=== PATIENT | female | born 1985 | race African-American/Black ===

== ENCOUNTER 2017-01-16 19:53 | Inpatient (IN) ==
[2017-01-16 21:47] LABS: Basophils % 0.3 % (0.0-0.8); Eosinophils % 0.4 % (0.00-10.9); Hematocrit 38.7 VOL% (35.7-47.0); Hemoglobin 12.7 GM/DL (12.0-16.0); Immature Granulocytes % 0.3 %; Immature Granulocytes Absolute 0.03 #; Lymphocytes # 1.8 10*3/uL (1.4-4.0); Lymphocytes % 18.9 % (21.3-54.2); Mean Corpuscular HGB Conc 32.8 GM/DL (32-36); Mean Corpuscular Hemoglobin 29 PG (27-34); Mean Corpuscular Volume 88.2 FL (87-102); Mean Platelet Volume 9.7 FL (9.6-12.0); Monocytes # 0.7 10*3/uL (0.11-0.8); Monocytes % 7.9 % (1.7-12.7); Neutrophils # 6.7 10*3/uL (1.4-7.4); Neutrophils % 72.2 % (38.7-73.9); Platelet Count 303 T/CUMM (130-400); Red Blood Count 4.39 MC/CUMM (3.8-5.5); Red Cell Distribution Width 13.4 % (9.3-17.3); White Blood Count 9.3 T/CUMM (4-12)
[2017-01-16 22:02] LABS: Albumin 3.5 G/DL (3.4-5.0); Bilirubin,Total 0.5 MG/DL (0.2-1.0); Calcium 9.6 MG/DL (8.5-10.1); Osmolality,Calculated 279.4 MOS/KG (273-304); Total Protein 8.7 G/DL (6.4-8.3)
[2017-01-16] MEDS ORDERED: LABETALOL 100 MG/20 ML VIAL IV STA (22:21)
[2017-01-16] MEDS ORDERED: LABETALOL 20 MG/4 ML SYRINGE IV ONE (22:26)
[2017-01-16 23:01] LABS: Apearance,Urine Slightly Hazy (Clear); Bacteria,Urine Occasional /HPF (Few); Bilirubin,Urine Negative (Negative); Blood, Urine Negative (Negative); Glucose,Urine (UA) Negative (Negative); Ketones,Urine Negative (Negative); Nitrite,Urine Negative (Negative); Protein,Urine Negative; RBC,Urine 1 /HPF (0-4); Squamous Epithelial Cell,Urine Occasional /HPF (0-10); Urine Color Yellow (Yellow); Urine Specific Gravity 1.015 (1.001-1.035); Urine Urobilinogen < 2.0 EU/DL (0.2-1.0); WBC,Urine 6 /HPF (0-6)
[2017-01-17] MEDS ORDERED: LABETALOL 20 MG/4 ML SYRINGE IV STA (00:23)
[2017-01-17] MEDS ORDERED: LABETALOL 20 MG/4 ML SYRINGE IV ONE (00:25)
[2017-01-17] MEDS ORDERED: niCARdipine 25 MG/10 ML VIAL IV ONE ×2 (01:43→03:11)
[2017-01-17] MEDS: niCARdipine INJ 25 MG in SODIUM CHLORIDE 0.9% 240 ML IV SCH ×2 (01:56→04:44)
[2017-01-17] MEDS ORDERED: ONDANSETRON 4 MG/2 ML VIAL IV PRN (03:15)
[2017-01-17] MEDS: niCARdipine INJ 50 MG in SODIUM CHLORIDE 0.9% 480 ML IV SCH ×4 (04:24→16:12)
[2017-01-17 06:29] LABS: Risk Ratio 2.66; Thyroid Stimulating Hormone 3.35 uIU/ml (0.358-3.74)
[2017-01-17] MEDS ORDERED: ENOXAPARIN 40 MG/0.4 ML SYRINGE SUBCUT SCH (09:00)
[2017-01-17] MEDS ORDERED: amLODIPine 5 MG TABLET PO SCH (09:00)
[2017-01-17] MEDS: CALCIUM (CARBONATE)/VITAMIN D 600 MG-400 UNIT TABLET PO SCH (09:41)
[2017-01-17] MEDS: DOCUSATE SODIUM 100 MG CAPSULE PO SCH ×3 (09:41→21:39)
[2017-01-17] MEDS: predniSONE 5 MG TABLET PO SCH (09:41)
[2017-01-17] MEDS: PANTOPRAZOLE 40 MG TABLET PO SCH (09:41)
[2017-01-17] MEDS: azaTHIOprine 50 MG TABLET PO SCH (09:41)
[2017-01-17] MEDS: LISINOPRIL 10 MG TABLET PO SCH (13:32)
[2017-01-17] MEDS: MORPHINE 2 MG/1 ML SYRINGE IV PRN (19:06)
[2017-01-18] MEDS: niCARdipine INJ 50 MG in SODIUM CHLORIDE 0.9% 480 ML IV SCH ×2 (01:33→06:33)
[2017-01-18] MEDS: amLODIPine 5 MG TABLET PO SCH (09:27)
[2017-01-18] MEDS: CALCIUM (CARBONATE)/VITAMIN D 600 MG-400 UNIT TABLET PO SCH (09:27)
[2017-01-18] MEDS: LISINOPRIL 10 MG TABLET PO SCH ×2 (09:27→20:14)
[2017-01-18] MEDS: azaTHIOprine 50 MG TABLET PO SCH (09:27)
[2017-01-18] MEDS: predniSONE 5 MG TABLET PO SCH (09:28)
[2017-01-18] MEDS: DOCUSATE SODIUM 100 MG CAPSULE PO SCH ×2 (09:28→20:14)
[2017-01-18] MEDS: PANTOPRAZOLE 40 MG TABLET PO SCH (09:28)
[2017-01-18] MEDS: NIFEdipine 10 MG CAPSULE PO PRN (19:10)
[2017-01-19] MEDS: niCARdipine INJ 50 MG in SODIUM CHLORIDE 0.9% 480 ML IV SCH (05:58)
[2017-01-19] MEDS ORDERED: ceFAZolin 2,000 MG in PREMIX 1 EACH IV ONE (08:52)
[2017-01-19] MEDS: CALCIUM (CARBONATE)/VITAMIN D 600 MG-400 UNIT TABLET PO SCH (09:16)
[2017-01-19] MEDS: LISINOPRIL 10 MG TABLET PO SCH ×2 (09:17)
[2017-01-19] MEDS: PANTOPRAZOLE 40 MG TABLET PO SCH (09:17)
[2017-01-19] MEDS: predniSONE 5 MG TABLET PO SCH (09:17)
[2017-01-19] MEDS: LABETALOL 20 MG/4 ML SYRINGE IV PRN ×2 (09:17→20:44)
[2017-01-19] MEDS: amLODIPine 5 MG TABLET PO SCH (09:17)
[2017-01-19] MEDS: DOCUSATE SODIUM 100 MG CAPSULE PO SCH ×2 (09:17→20:43)
[2017-01-19] MEDS: azaTHIOprine 50 MG TABLET PO SCH (09:17)
[2017-01-19] MEDS: LACTATED RINGERS 1,000 ML IV SCH (10:11)
[2017-01-19] MEDS ORDERED: BUPIVACAINE 0.5% 50 ML VIAL ONE (10:17)
[2017-01-19] MEDS ORDERED: LABETALOL 100 MG/20 ML VIAL IV ONE (10:50)
[2017-01-19] MEDS ORDERED: LIDOCAINE 2% 5 ML VIAL ONE (10:50)
[2017-01-19] MEDS ORDERED: ceFAZolin 1,000 MG VIAL ONE (11:09)
[2017-01-19] MEDS ORDERED: BACITRACIN OINT 0.9 GM PACK TOP ONE (11:23)
[2017-01-19] MEDS ORDERED: fentaNYL 100 MCG/2 ML VIAL ONE (11:29)
[2017-01-19] MEDS ORDERED: MIDAZOLAM 2 MG/2 ML VIAL ONE (11:29)
[2017-01-19] MEDS: ceFAZolin 2,000 MG in PREMIX 1 EACH IV SCH (18:26)
[2017-01-19] MEDS: LISINOPRIL 20 MG TABLET PO SCH (20:43)
[2017-01-20] MEDS: ceFAZolin 2,000 MG in PREMIX 1 EACH IV SCH (01:01)
[2017-01-20] MEDS: niCARdipine INJ 50 MG in SODIUM CHLORIDE 0.9% 480 ML IV SCH (05:09)
[2017-01-20 06:09] LABS: Calcium 8.5 MG/DL (8.5-10.1); Osmolality,Calculated 275.5 MOS/KG (273-304); Potassium 3.9 MMOL/L (3.5-5.1)
[2017-01-20 06:10] LABS: Basophils % 0.2 % (0.0-0.8); Eosinophils % 0.6 % (0.00-10.9); Hematocrit 33.3 VOL% (35.7-47.0); Immature Granulocytes % 0.3 %; Immature Granulocytes Absolute 0.02 #; Lymphocytes # 1.3 10*3/uL (1.4-4.0); Lymphocytes % 20.3 % (21.3-54.2); Mean Corpuscular Hemoglobin 29 PG (27-34); Mean Corpuscular Volume 88.1 FL (87-102); Mean Platelet Volume 9.7 FL (9.6-12.0); Monocytes # 0.6 10*3/uL (0.11-0.8); Monocytes % 9.1 % (1.7-12.7); Neutrophils # 4.4 10*3/uL (1.4-7.4); Neutrophils % 69.5 % (38.7-73.9); Platelet Count 264 T/CUMM (130-400); Red Blood Count 3.78 MC/CUMM (3.8-5.5); Red Cell Distribution Width 13.6 % (9.3-17.3); White Blood Count 6.4 T/CUMM (4-12)
[2017-01-20] MEDS: amLODIPine 5 MG TABLET PO SCH (08:49)
[2017-01-20] MEDS: azaTHIOprine 50 MG TABLET PO SCH (08:49)
[2017-01-20] MEDS: DOCUSATE SODIUM 100 MG CAPSULE PO SCH ×2 (08:49→21:59)
[2017-01-20] MEDS: LISINOPRIL 20 MG TABLET PO SCH ×2 (08:49→21:59)
[2017-01-20] MEDS: PANTOPRAZOLE 40 MG TABLET PO SCH (08:49)
[2017-01-20] MEDS: CALCIUM (CARBONATE)/VITAMIN D 600 MG-400 UNIT TABLET PO SCH (08:49)
[2017-01-20] MEDS: predniSONE 5 MG TABLET PO SCH (08:49)
[2017-01-20] MEDS: LACTATED RINGERS 1,000 ML IV SCH (10:07)
[2017-01-20] MEDS: LABETALOL 20 MG/4 ML SYRINGE IV PRN (11:41)
[2017-01-21] MEDS: LISINOPRIL 20 MG TABLET PO SCH ×2 (08:34→22:05)
[2017-01-21] MEDS: predniSONE 5 MG TABLET PO SCH (08:34)
[2017-01-21] MEDS: CALCIUM (CARBONATE)/VITAMIN D 600 MG-400 UNIT TABLET PO SCH (08:34)
[2017-01-21] MEDS: PANTOPRAZOLE 40 MG TABLET PO SCH (08:34)
[2017-01-21] MEDS: azaTHIOprine 50 MG TABLET PO SCH (08:34)
[2017-01-21] MEDS: DOCUSATE SODIUM 100 MG CAPSULE PO SCH ×3 (08:34→22:06)
[2017-01-21] MEDS: LACTATED RINGERS 1,000 ML IV SCH (10:40)
[2017-01-21] MEDS: MORPHINE 2 MG/1 ML SYRINGE IV PRN ×2 (11:41→23:16)
[2017-01-21] MEDS: niCARdipine INJ 50 MG in SODIUM CHLORIDE 0.9% 480 ML IV SCH (22:28)
[2017-01-22] MEDS: LABETALOL 20 MG/4 ML SYRINGE IV PRN (02:42)
[2017-01-22] MEDS: DOCUSATE SODIUM 100 MG CAPSULE PO SCH ×3 (09:14→21:05)
[2017-01-22] MEDS: CALCIUM (CARBONATE)/VITAMIN D 600 MG-400 UNIT TABLET PO SCH (09:14)
[2017-01-22] MEDS: azaTHIOprine 50 MG TABLET PO SCH (09:15)
[2017-01-22] MEDS: predniSONE 5 MG TABLET PO SCH (09:15)
[2017-01-22] MEDS: CARVEDILOL 12.5 MG TABLET PO SCH ×2 (09:15→21:05)
[2017-01-22] MEDS: PANTOPRAZOLE 40 MG TABLET PO SCH (09:15)
[2017-01-22] MEDS: LISINOPRIL 20 MG TABLET PO SCH (09:15)
[2017-01-23] MEDS: NIFEdipine 10 MG CAPSULE PO PRN (00:09)
[2017-01-23] MEDS: CALCIUM (CARBONATE)/VITAMIN D 600 MG-400 UNIT TABLET PO SCH (08:53)
[2017-01-23] MEDS: predniSONE 5 MG TABLET PO SCH (08:53)
[2017-01-23] MEDS: DOCUSATE SODIUM 100 MG CAPSULE PO SCH ×2 (08:53→08:57)
[2017-01-23] MEDS: LISINOPRIL 20 MG TABLET PO SCH (08:53)
[2017-01-23] MEDS: azaTHIOprine 50 MG TABLET PO SCH (08:54)
[2017-01-23] MEDS: PANTOPRAZOLE 40 MG TABLET PO SCH (08:54)
[2017-01-23] MEDS: CARVEDILOL 12.5 MG TABLET PO SCH (08:54)
[2017-01-23] MEDS ORDERED: LEVOFLOXACIN 500 MG TABLET PO SCH (09:00)
[2017-01-23 16:11] VITALS: BP 131/84
== END 2017-01-23 15:15 | disposition home or self-care (01) | DRG 256 ==
LOC: N.ED 19:53 → SUATTDRO 01-17 02:21 → N.CC 01-17 02:21 → N.5E 01-18 21:54
PROVIDERS: ADMIT Internal Medicine; ATTEND Hospitalist

== ENCOUNTER 2020-07-31 17:21 | Observation (INO) ==
[2020-07-31] MEDS ORDERED: hydrALAZINE 20 MG/1 ML VIAL IV STA ×2 (18:16→20:22)
[2020-07-31 18:28] LABS: Basophils % 0.7 % (0.0-0.8); Eosinophils % 0.4 % (0.00-10.9); Hemoglobin 11.7 GM/DL (12.0-16.0); Immature Granulocytes % 0.2 %; Immature Granulocytes Absolute 0.01 #; Lymphocytes # 1.2 10*3/uL (1.4-4.0); Lymphocytes % 21.5 % (21.3-54.2); Mean Corpuscular HGB Conc 30.8 GM/DL (32-36); Mean Corpuscular Volume 89.4 FL (87-102); Mean Platelet Volume 9.5 FL (9.6-12.0); Monocytes % 10.9 % (1.7-12.7); Neutrophils % 66.3 % (38.7-73.9); Platelet Count 303 T/CUMM (130-400); Red Blood Count 4.25 MC/CUMM (3.8-5.5); Red Cell Distribution Width 14.4 % (9.3-17.3); White Blood Count 5.4 T/CUMM (4-12)
[2020-07-31 18:37] LABS: PT Patient Result 11.4 SECS (10.5-12.0); Partial Thromboplastin Time 26.3 SECS (23.9-33.8)
[2020-07-31 18:40] LABS: Alanine Aminotransferase 23 U/L (13-56); Albumin 3.2 G/DL (3.4-5.0); Alkaline Phosphatase 72 U/L (45-117); Aspartate Amino Transferase 21 U/L (0-37); Blood Urea Nitrogen 15 MG/DL (7-18); Calcium 9.2 MG/DL (8.5-10.1); Carbon Dioxide 27 MMOL/L (21-32); Estimated Glom Filtration Rate 94 ML/MIN; Glucose 80 MG/DL (74-106); Osmolality,Calculated 272.8 MOS/KG (273-304); Potassium 3.8 MMOL/L (3.5-5.1); Sodium 137 MMOL/L (136-145); Total Protein 7.8 G/DL (6.4-8.2); Troponin I 0.102 NG/ML (0.00-0.045)
[2020-07-31] MEDS ORDERED: LABETALOL 100 MG/20 ML VIAL IV STA (19:24)
[2020-07-31] MEDS ORDERED: LABETALOL 20 MG/4 ML SYRINGE IV ONE (19:28)
[2020-07-31] MEDS ORDERED: cloNIDine 0.1 MG TABLET PO STA (20:39)
[2020-07-31] MEDS ORDERED: ACETAMINOPHEN 500 MG TABLET PO STA (21:27)
[2020-07-31] MEDS ORDERED: ONDANSETRON 4 MG/2 ML VIAL IV PRN (21:57)
[2020-07-31] MEDS ORDERED: ACETAMINOPHEN 325 MG TABLET PO PRN (21:57)
[2020-07-31] MEDS: DOCUSATE SODIUM 100 MG CAPSULE PO SCH (22:50)
[2020-08-01] MEDS: hydrALAZINE 20 MG/1 ML VIAL IV PRN ×2 (04:55→21:04)
[2020-08-01] MEDS: carvediloL 25 MG TABLET PO SCH ×2 (09:37→21:04)
[2020-08-01] MEDS: cloNIDine 0.1 MG TABLET PO SCH ×2 (09:37→20:59)
[2020-08-01] MEDS: PANTOPRAZOLE 40 MG TABLET PO SCH (09:37)
[2020-08-01] MEDS: DOCUSATE SODIUM 100 MG CAPSULE PO SCH ×2 (09:37→21:04)
[2020-08-01] MEDS: amLODIPine 5 MG TABLET PO SCH (13:05)
[2020-08-01] MEDS ORDERED: amLODIPine 10 MG TABLET ONE (13:13)
[2020-08-02 06:39] LABS: Calcium 8.6 MG/DL (8.5-10.1); Osmolality,Calculated 275.5 MOS/KG (273-304); Potassium 3.6 MMOL/L (3.5-5.1)
[2020-08-02 06:40] LABS: Basophils % 0.6 % (0.0-0.8); Eosinophils # 0.1 10*3/uL (0.0-0.87); Eosinophils % 4.2 % (0.00-10.9); Hematocrit 33.7 VOL% (35.7-47.0); Hemoglobin 10.6 GM/DL (12.0-16.0); Immature Granulocytes % 0.3 %; Immature Granulocytes Absolute 0.01 #; Lymphocytes # 0.8 10*3/uL (1.4-4.0); Lymphocytes % 22.9 % (21.3-54.2); Mean Corpuscular HGB Conc 31.5 GM/DL (32-36); Mean Corpuscular Volume 88.5 FL (87-102); Mean Platelet Volume 9.6 FL (9.6-12.0); Monocytes % 18.5 % (1.7-12.7); Neutrophils % 53.5 % (38.7-73.9); Platelet Count 216 T/CUMM (130-400); Red Blood Count 3.81 MC/CUMM (3.8-5.5); Red Cell Distribution Width 14.8 % (9.3-17.3); White Blood Count 3.4 T/CUMM (4-12)
[2020-08-02 08:10] LABS: Band Neutrophils 1 % (0-10); Eosinophils 5 % (0-10); Hypochromasia 1+; Lymphocytes 19 % (20-55); Microcytosis 1+; Segmented Neutrophils 63 % (50-85); Total Cells Counted 100
[2020-08-02 08:11] LABS: Platelet Estimate Normal
[2020-08-02] MEDS: amLODIPine 5 MG TABLET PO SCH (09:04)
[2020-08-02] MEDS: PANTOPRAZOLE 40 MG TABLET PO SCH (09:04)
[2020-08-02] MEDS: carvediloL 25 MG TABLET PO SCH (09:04)
[2020-08-02] MEDS: DOCUSATE SODIUM 100 MG CAPSULE PO SCH (09:04)
[2020-08-02] MEDS: cloNIDine 0.1 MG TABLET PO SCH (09:04)
[2020-08-02 11:37] VITALS: BP 144/102
== END 2020-08-02 15:32 | disposition home or self-care (01) ==
LOC: N.ED 17:21 → INTOOBSV 20:37 → N.EDINP 20:37 → N.TELEN 08-01 12:57
PROVIDERS: ADMIT Family Medicine; ATTEND Family Medicine

== ENCOUNTER 2020-08-27 06:07 | Inpatient (IN) ==
[~2020-08-27 06:07] MED LIST: ASPIRIN 325 MG TABLET PO ONE; DIAZEPAM 5 MG TABLET PO ONE; MAGNESIUM SULF RIDER 2 GM/50 ML PREMIX IV PRN; POTASSIUM CHLORIDE RIDER 10 MEQ/100 ML PREMIX IV PRN; diphenhydrAMINE CAP 25 MG CAPSULE PO ONE
[2020-08-27] MEDS ORDERED: DIAZEPAM 5 MG TABLET ONE (06:47)
[2020-08-27] MEDS ORDERED: ASPIRIN 325 MG TABLET ONE (06:48)
[2020-08-27] MEDS ORDERED: diphenhydrAMINE CAP 25 MG CAPSULE ONE (06:48)
[2020-08-27] MEDS: SODIUM CHLORIDE 0.9% 1,000 ML IV SCH ×2 (06:54→21:40)
[2020-08-27 06:57] LABS: Basophils % 0.2 % (0.0-0.8); Eosinophils % 0.8 % (0.00-10.9); Hemoglobin 10.6 GM/DL (12.0-16.0); Immature Granulocytes % 0.2 %; Immature Granulocytes Absolute 0.01 #; Lymphocytes # 1.3 10*3/uL (1.4-4.0); Lymphocytes % 24.7 % (21.3-54.2); Mean Corpuscular HGB Conc 31.2 GM/DL (32-36); Mean Corpuscular Volume 89.2 FL (87-102); Mean Platelet Volume 9.7 FL (9.6-12.0); Monocytes % 11.1 % (1.7-12.7); Platelet Count 243 T/CUMM (130-400); Red Blood Count 3.81 MC/CUMM (3.8-5.5); Red Cell Distribution Width 14.5 % (9.3-17.3); White Blood Count 5.2 T/CUMM (4-12)
[2020-08-27] MEDS ORDERED: HEPARIN/NACL 0.9% 2 UNITS/ML 2,000 UNIT/1,000 ML BAG IV ONE (07:02)
[2020-08-27] MEDS ORDERED: LIDOCAINE 1% 20 ML VIAL ONE (07:02)
[2020-08-27 07:18] LABS: Hypochromasia Slight; Microcytosis Slight; Platelet Estimate Adequate
[2020-08-27] MEDS: NITROGLYCERIN DRIP 50 MG/250 ML BOTTLE IV PRN ×2 (07:19→21:09)
[2020-08-27 07:20] LABS: Alanine Aminotransferase 16 U/L (13-56); Alkaline Phosphatase 68 U/L (45-117); Aspartate Amino Transferase 15 U/L (0-37); Bilirubin,Total < 0.39 MG/DL (0.2-1.0); Blood Urea Nitrogen 21 MG/DL (7-18); Calcium 8.8 MG/DL (8.5-10.1); Carbon Dioxide 29 MMOL/L (21-32); Estimated Glom Filtration Rate 93 ML/MIN; Glucose 88 MG/DL (74-106); Osmolality,Calculated 278.5 MOS/KG (273-304); Potassium 3.8 MMOL/L (3.5-5.1); Sodium 139 MMOL/L (136-145); Total Protein 7.8 G/DL (6.4-8.2)
[2020-08-27] MEDS ORDERED: fentaNYL 100 MCG/2 ML VIAL ONE ×2 (07:39→10:12)
[2020-08-27] MEDS ORDERED: MIDAZOLAM 2 MG/2 ML VIAL ONE ×2 (07:39→10:12)
[2020-08-27] MEDS ORDERED: HEPARIN/NACL 0.9% 2 UNITS/ML 1,000 UNIT/500 ML BAG IV ONE (10:08)
[2020-08-27] MEDS ORDERED: NITROGLYCERIN DRIP 50 MG/250 ML BOTTLE IV ONE (10:11)
[2020-08-27] MEDS ORDERED: HEPARIN 5,000 UNIT/1 ML VIAL ONE (10:11)
[2020-08-27] MEDS ORDERED: VERAPAMIL 5 MG/2 ML VIAL ONE (10:12)
[2020-08-27] MEDS: hydrALAZINE 25 MG TABLET PO SCH ×2 (15:10→20:45)
[2020-08-27] MEDS: carvediloL 25 MG TABLET PO SCH (20:45)
[2020-08-28 03:50] LABS: Basophils % 0.4 % (0.0-0.8); Eosinophils # 0.1 10*3/uL (0.0-0.87); Eosinophils % 1.1 % (0.00-10.9); Hematocrit 31.2 VOL% (35.7-47.0); Hemoglobin 9.8 GM/DL (12.0-16.0); Lymphocytes % 18.5 % (21.3-54.2); Mean Corpuscular HGB Conc 31.4 GM/DL (32-36); Mean Corpuscular Volume 88.6 FL (87-102); Mean Platelet Volume 9.5 FL (9.6-12.0); Platelet Count 226 T/CUMM (130-400); Red Blood Count 3.52 MC/CUMM (3.8-5.5); Red Cell Distribution Width 14.4 % (9.3-17.3); White Blood Count 5.6 T/CUMM (4-12)
[2020-08-28 04:03] LABS: Calcium 8.2 MG/DL (8.5-10.1); Osmolality,Calculated 273.7 MOS/KG (273-304); Potassium 3.7 MMOL/L (3.5-5.1)
[2020-08-28] MEDS: NITROGLYCERIN DRIP 50 MG/250 ML BOTTLE IV PRN ×2 (04:57→13:00)
[2020-08-28] MEDS: SODIUM CHLORIDE 0.9% 1,000 ML IV SCH ×2 (07:32→09:01)
[2020-08-28] MEDS: hydroCHLOROthiazide 12.5 MG CAPSULE PO SCH (08:56)
[2020-08-28] MEDS: hydrALAZINE 25 MG TABLET PO SCH (08:56)
[2020-08-28] MEDS: carvediloL 25 MG TABLET PO SCH ×2 (08:56→20:29)
[2020-08-28] MEDS ORDERED: LOSARTAN 25 MG TABLET PO SCH (10:00)
[2020-08-28] MEDS ORDERED: ALUMINUM/MAGNES/SIMETH MAX STR 30 ML UDCUP PO PRN (10:38)
[2020-08-28] MEDS ORDERED: CALCIUM CARBONATE CHEW 500 MG TABLET PO PRN (10:38)
[2020-08-28] MEDS ORDERED: LACTULOSE 20 GM/30 ML UDCUP PO PRN (10:38)
[2020-08-28] MEDS ORDERED: ZALEPLON 5 MG CAPSULE PO PRN (10:38)
[2020-08-28] MEDS ORDERED: BISACODYL 5 MG TABLET PO PRN (10:38)
[2020-08-28] MEDS ORDERED: ONDANSETRON 4 MG/2 ML VIAL IV PRN (10:38)
[2020-08-28] MEDS ORDERED: SIMETHICONE CHEW 125 MG TABLET PO PRN (10:38)
[2020-08-28] MEDS ORDERED: MAGNESIUM SULF RIDER 4 GM/100 ML PREMIX IV PRN (10:38)
[2020-08-28] MEDS ORDERED: MAGNESIUM SULF RIDER 2 GM/50 ML PREMIX IV PRN (10:38)
[2020-08-28] MEDS ORDERED: diphenhydrAMINE CAP 25 MG CAPSULE PO PRN (10:38)
[2020-08-28] MEDS: ENOXAPARIN 40 MG/0.4 ML SYRINGE SUBCUT SCH (11:05)
[2020-08-28] MEDS: ACETAMINOPHEN 325 MG TABLET PO PRN ×2 (11:06→21:45)
[2020-08-28] MEDS: amLODIPine 5 MG TABLET PO SCH (12:02)
[2020-08-28] MEDS: hydrALAZINE 20 MG/1 ML VIAL IV PRN ×2 (12:03→21:35)
[2020-08-28] MEDS: LOSARTAN 25 MG TABLET PO SCH (20:29)
[2020-08-29 08:28] LABS: Basophils % 0.4 % (0.0-0.8); Eosinophils # 0.1 10*3/uL (0.0-0.87); Eosinophils % 1.5 % (0.00-10.9); Hematocrit 34.6 VOL% (35.7-47.0); Hemoglobin 11.1 GM/DL (12.0-16.0); Immature Granulocytes % 0.2 %; Immature Granulocytes Absolute 0.01 #; Lymphocytes # 1.1 10*3/uL (1.4-4.0); Lymphocytes % 19.7 % (21.3-54.2); Mean Corpuscular HGB Conc 32.1 GM/DL (32-36); Mean Corpuscular Volume 88.3 FL (87-102); Mean Platelet Volume 9.7 FL (9.6-12.0); Monocytes % 9.3 % (1.7-12.7); Neutrophils % 68.9 % (38.7-73.9); Platelet Count 257 T/CUMM (130-400); Red Blood Count 3.92 MC/CUMM (3.8-5.5); Red Cell Distribution Width 14.5 % (9.3-17.3); White Blood Count 5.4 T/CUMM (4-12)
[2020-08-29] MEDS: LOSARTAN 25 MG TABLET PO SCH (08:41)
[2020-08-29] MEDS: hydroCHLOROthiazide 12.5 MG CAPSULE PO SCH (08:41)
[2020-08-29] MEDS: PANTOPRAZOLE 40 MG TABLET PO SCH (08:41)
[2020-08-29] MEDS: carvediloL 25 MG TABLET PO SCH ×2 (08:41→21:37)
[2020-08-29] MEDS: amLODIPine 5 MG TABLET PO SCH (08:41)
[2020-08-29 08:43] LABS: Calcium 8.7 MG/DL (8.5-10.1); Osmolality,Calculated 267.1 MOS/KG (273-304); Potassium 3.2 MMOL/L (3.5-5.1)
[2020-08-29] MEDS: ENOXAPARIN 40 MG/0.4 ML SYRINGE SUBCUT SCH (10:45)
[2020-08-29] MEDS: hydrALAZINE 20 MG/1 ML VIAL IV PRN (11:32)
[2020-08-29] MEDS ORDERED: LOSARTAN 25 MG TABLET PO ONE (12:20)
[2020-08-29] MEDS: POTASSIUM CHLORIDE 20 MEQ TABLET PO PRN ×4 (12:20→17:30)
[2020-08-29] MEDS: LOSARTAN 50 MG TABLET PO SCH (21:37)
[2020-08-30] MEDS: hydrALAZINE 20 MG/1 ML VIAL IV PRN (04:55)
[2020-08-30 05:12] LABS: Basophils % 0.2 % (0.0-0.8); Eosinophils # 0.1 10*3/uL (0.0-0.87); Eosinophils % 1.1 % (0.00-10.9); Hematocrit 33.6 VOL% (35.7-47.0); Hemoglobin 10.5 GM/DL (12.0-16.0); Immature Granulocytes % 0.5 %; Immature Granulocytes Absolute 0.03 #; Lymphocytes % 16.4 % (21.3-54.2); Mean Corpuscular HGB Conc 31.3 GM/DL (32-36); Mean Corpuscular Volume 88.7 FL (87-102); Mean Platelet Volume 9.8 FL (9.6-12.0); Monocytes % 11.2 % (1.7-12.7); Neutrophils % 70.6 % (38.7-73.9); Platelet Count 263 T/CUMM (130-400); Red Blood Count 3.79 MC/CUMM (3.8-5.5); Red Cell Distribution Width 14.4 % (9.3-17.3); White Blood Count 6.3 T/CUMM (4-12)
[2020-08-30 05:53] LABS: Calcium 8.6 MG/DL (8.5-10.1); Potassium 4.2 MMOL/L (3.5-5.1)
[2020-08-30] MEDS: LOSARTAN 50 MG TABLET PO SCH ×2 (08:57→20:38)
[2020-08-30] MEDS: hydroCHLOROthiazide 12.5 MG CAPSULE PO SCH (08:57)
[2020-08-30] MEDS: amLODIPine 5 MG TABLET PO SCH (08:57)
[2020-08-30] MEDS: minoxidiL 2.5 MG TABLET PO SCH ×2 (08:57→20:38)
[2020-08-30] MEDS: carvediloL 25 MG TABLET PO SCH ×2 (08:57→20:38)
[2020-08-30] MEDS: PANTOPRAZOLE 40 MG TABLET PO SCH (08:57)
[2020-08-30] MEDS: ENOXAPARIN 40 MG/0.4 ML SYRINGE SUBCUT SCH (11:24)
[2020-08-31 04:47] LABS: Basophils % 0.3 % (0.0-0.8); Eosinophils # 0.1 10*3/uL (0.0-0.87); Eosinophils % 1.4 % (0.00-10.9); Hematocrit 33.1 VOL% (35.7-47.0); Hemoglobin 10.4 GM/DL (12.0-16.0); Immature Granulocytes % 0.2 %; Immature Granulocytes Absolute 0.01 #; Lymphocytes # 1.1 10*3/uL (1.4-4.0); Lymphocytes % 18.6 % (21.3-54.2); Mean Corpuscular HGB Conc 31.4 GM/DL (32-36); Mean Corpuscular Volume 87.6 FL (87-102); Mean Platelet Volume 9.6 FL (9.6-12.0); Monocytes % 12.6 % (1.7-12.7); Neutrophils % 66.9 % (38.7-73.9); Platelet Count 270 T/CUMM (130-400); Red Blood Count 3.78 MC/CUMM (3.8-5.5); Red Cell Distribution Width 14.5 % (9.3-17.3); White Blood Count 5.9 T/CUMM (4-12)
[2020-08-31 05:09] LABS: Calcium 8.7 MG/DL (8.5-10.1); Osmolality,Calculated 269.2 MOS/KG (273-304)
[2020-08-31] MEDS: PANTOPRAZOLE 40 MG TABLET PO SCH (08:12)
[2020-08-31] MEDS: carvediloL 25 MG TABLET PO SCH (08:12)
[2020-08-31] MEDS: LOSARTAN 50 MG TABLET PO SCH (08:12)
[2020-08-31] MEDS: minoxidiL 2.5 MG TABLET PO SCH (08:12)
[2020-08-31] MEDS: hydroCHLOROthiazide 12.5 MG CAPSULE PO SCH (08:12)
[2020-08-31] MEDS: ENOXAPARIN 40 MG/0.4 ML SYRINGE SUBCUT SCH (11:00)
[2020-08-31 12:19] VITALS: BP 136/85
== END 2020-08-31 15:05 | disposition home or self-care (01) | DRG 287 ==
LOC: N.CL 06:07 → N.CC 10:59 → N.TELEN 08-29 10:54
PROVIDERS: ADMIT Internal Medicine Cardiovascular Disease; ATTEND Internal Medicine Cardiovascular Disease
PROC: CLCCHCL (ICD-10-PCS; 2020-08-27 08:05)

== ENCOUNTER 2021-05-04 14:49 | Inpatient (IN) ==
[2021-05-04 15:34] LABS: Basophils % 0.4 % (0.0-0.8); Eosinophils % 0.4 % (0.00-10.9); Hematocrit 32.5 VOL% (35.7-47.0); Hemoglobin 9.8 GM/DL (12.0-16.0); Immature Granulocytes % 0.4 %; Immature Granulocytes Absolute 0.02 #; Lymphocytes # 0.7 10*3/uL (1.4-4.0); Lymphocytes % 12.8 % (21.3-54.2); Mean Corpuscular HGB Conc 30.2 GM/DL (32-36); Mean Corpuscular Volume 82.3 FL (87-102); Mean Platelet Volume 9.8 FL (9.6-12.0); Monocytes % 10.6 % (1.7-12.7); Neutrophils % 75.4 % (38.7-73.9); Platelet Count 308 T/CUMM (130-400); Red Blood Count 3.95 MC/CUMM (3.8-5.5); Red Cell Distribution Width 15.9 % (9.3-17.3); White Blood Count 5.4 T/CUMM (4-12)
[2021-05-04 15:45] LABS: INR 1.1; PT Patient Result 11.7 SECS (10.5-12.0); Partial Thromboplastin Time 23.8 SECS (23.8-32.1)
[2021-05-04 16:02] LABS: Albumin 2.8 G/DL (3.4-5.0); Bilirubin,Total 0.5 MG/DL (0.20-1.00); Calcium 8.5 MG/DL (8.5-10.1); Osmolality,Calculated 281.3 MOS/KG (273-304); Potassium 3.5 MMOL/L (3.5-5.1); Total Protein 7.3 G/DL (6.4-8.2)
[2021-05-04] MEDS ORDERED: FUROSEMIDE 40 MG/4 ML VIAL IV STA (16:37)
[2021-05-04] MEDS ORDERED: hydrALAZINE 20 MG/1 ML VIAL IV STA (16:38)
[2021-05-04] MEDS ORDERED: ACETAMINOPHEN 325 MG TABLET PO PRN (16:55)
[2021-05-04] MEDS ORDERED: ONDANSETRON 4 MG/2 ML VIAL IV PRN (16:55)
[2021-05-04] MEDS: cloNIDine 0.1 MG TABLET PO SCH (21:24)
[2021-05-04] MEDS: carvediloL 25 MG TABLET PO SCH (21:25)
[2021-05-05] MEDS: minoxidiL 2.5 MG TABLET PO SCH ×3 (00:31→21:36)
[2021-05-05 05:25] LABS: Basophils % 0.2 % (0.0-0.8); Eosinophils % 0.4 % (0.00-10.9); Hematocrit 31.5 VOL% (35.7-47.0); Hemoglobin 9.4 GM/DL (12.0-16.0); Immature Granulocytes % 0.4 %; Immature Granulocytes Absolute 0.02 #; Lymphocytes # 0.8 10*3/uL (1.4-4.0); Lymphocytes % 16.9 % (21.3-54.2); Mean Corpuscular HGB Conc 29.8 GM/DL (32-36); Mean Corpuscular Volume 81.6 FL (87-102); Mean Platelet Volume 9.6 FL (9.6-12.0); Monocytes % 11.8 % (1.7-12.7); Neutrophils % 70.3 % (38.7-73.9); Platelet Count 284 T/CUMM (130-400); Red Blood Count 3.86 MC/CUMM (3.8-5.5); White Blood Count 4.7 T/CUMM (4-12)
[2021-05-05 08:40] LABS: Albumin 2.4 G/DL (3.4-5.0); Bilirubin,Total 0.6 MG/DL (0.20-1.00); Calcium 8.8 MG/DL (8.5-10.1); Osmolality,Calculated 280.3 MOS/KG (273-304); Potassium 3.4 MMOL/L (3.5-5.1); Total Protein 6.5 G/DL (6.4-8.2)
[2021-05-05] MEDS: PANTOPRAZOLE 40 MG TABLET PO SCH (09:53)
[2021-05-05] MEDS: cloNIDine 0.1 MG TABLET PO SCH ×2 (09:53→21:36)
[2021-05-05] MEDS: carvediloL 25 MG TABLET PO SCH ×2 (09:53→21:35)
[2021-05-05] MEDS: ENOXAPARIN 100 MG/ML SYRINGE SUBCUT SCH (09:54)
[2021-05-05] MEDS: lisinopriL 20 MG TABLET PO SCH (09:54)
[2021-05-05] MEDS: hydroCHLOROthiazide 12.5 MG CAPSULE PO SCH (09:54)
[2021-05-05] MEDS: FUROSEMIDE 40 MG/4 ML VIAL IV SCH ×2 (10:15→17:33)
[2021-05-05] MEDS ORDERED: POTASSIUM CHLORIDE 20 MEQ TABLET PO ONE (10:21)
[2021-05-05] MEDS: ASPIRIN EC 81 MG TABLET PO SCH (11:19)
[2021-05-06] MEDS ORDERED: POTASSIUM CHLORIDE 20 MEQ TABLET PO ONE (07:23)
[2021-05-06 08:39] LABS: Basophils % 0.4 % (0.0-0.8); Eosinophils % 0.4 % (0.00-10.9); Hematocrit 31.8 VOL% (35.7-47.0); Hemoglobin 9.7 GM/DL (12.0-16.0); Immature Granulocytes % 0.4 %; Immature Granulocytes Absolute 0.02 #; Lymphocytes # 0.7 10*3/uL (1.4-4.0); Lymphocytes % 13.1 % (21.3-54.2); Mean Corpuscular HGB Conc 30.5 GM/DL (32-36); Mean Corpuscular Volume 81.5 FL (87-102); Mean Platelet Volume 9.7 FL (9.6-12.0); Neutrophils % 73.7 % (38.7-73.9); Platelet Count 266 T/CUMM (130-400); Red Cell Distribution Width 16.2 % (9.3-17.3); White Blood Count 5.7 T/CUMM (4-12)
[2021-05-06 09:12] LABS: Albumin 2.3 G/DL (3.4-5.0); Bilirubin,Total 0.5 MG/DL (0.20-1.00); Calcium 8.9 MG/DL (8.5-10.1); Osmolality,Calculated 276.5 MOS/KG (273-304); Potassium 3.5 MMOL/L (3.5-5.1); Total Protein 6.6 G/DL (6.4-8.2)
[2021-05-06] MEDS ORDERED: MAGNESIUM SULF RIDER 2 GM/50 ML PREMIX IV ONE (09:58)
[2021-05-06] MEDS: minoxidiL 2.5 MG TABLET PO SCH ×2 (10:03→21:17)
[2021-05-06] MEDS: hydroCHLOROthiazide 12.5 MG CAPSULE PO SCH (10:03)
[2021-05-06] MEDS: ASPIRIN EC 81 MG TABLET PO SCH (10:03)
[2021-05-06] MEDS: PANTOPRAZOLE 40 MG TABLET PO SCH (10:04)
[2021-05-06] MEDS: carvediloL 25 MG TABLET PO SCH ×2 (10:04→21:16)
[2021-05-06] MEDS: cloNIDine 0.1 MG TABLET PO SCH (10:04)
[2021-05-06] MEDS: lisinopriL 20 MG TABLET PO SCH (10:04)
[2021-05-06] MEDS: ENOXAPARIN 100 MG/ML SYRINGE SUBCUT SCH (10:05)
[2021-05-06] MEDS: FUROSEMIDE 40 MG/4 ML VIAL IV SCH ×2 (11:05→16:19)
[2021-05-07] MEDS: cloNIDine 0.1 MG TABLET PO SCH ×2 (00:42→09:27)
[2021-05-07 08:10] LABS: Basophils % 0.3 % (0.0-0.8); Eosinophils % 0.3 % (0.00-10.9); Hematocrit 31.1 VOL% (35.7-47.0); Hemoglobin 9.6 GM/DL (12.0-16.0); Immature Granulocytes % 0.3 %; Immature Granulocytes Absolute 0.02 #; Lymphocytes # 0.8 10*3/uL (1.4-4.0); Lymphocytes % 12.2 % (21.3-54.2); Mean Corpuscular HGB Conc 30.9 GM/DL (32-36); Mean Corpuscular Volume 81.2 FL (87-102); Mean Platelet Volume 9.7 FL (9.6-12.0); Monocytes % 13.8 % (1.7-12.7); Neutrophils % 73.1 % (38.7-73.9); Platelet Count 331 T/CUMM (130-400); Red Blood Count 3.83 MC/CUMM (3.8-5.5); Red Cell Distribution Width 16.3 % (9.3-17.3); White Blood Count 6.4 T/CUMM (4-12)
[2021-05-07 08:42] LABS: Albumin 2.3 G/DL (3.4-5.0); Bilirubin,Total 0.4 MG/DL (0.20-1.00); Calcium 8.7 MG/DL (8.5-10.1); Osmolality,Calculated 275.7 MOS/KG (273-304); Potassium 3.4 MMOL/L (3.5-5.1); Total Protein 6.6 G/DL (6.4-8.2)
[2021-05-07] MEDS: FUROSEMIDE 40 MG/4 ML VIAL IV SCH (09:13)
[2021-05-07] MEDS ORDERED: POTASSIUM CHLORIDE 20 MEQ TABLET PO ONE (09:14)
[2021-05-07] MEDS: lisinopriL 20 MG TABLET PO SCH (09:18)
[2021-05-07] MEDS: carvediloL 25 MG TABLET PO SCH ×2 (09:27→20:22)
[2021-05-07] MEDS: hydroCHLOROthiazide 12.5 MG CAPSULE PO SCH (09:27)
[2021-05-07] MEDS: minoxidiL 2.5 MG TABLET PO SCH (09:28)
[2021-05-07] MEDS: PANTOPRAZOLE 40 MG TABLET PO SCH (09:28)
[2021-05-07] MEDS: ASPIRIN EC 81 MG TABLET PO SCH (09:28)
[2021-05-07] MEDS: ENOXAPARIN 100 MG/ML SYRINGE SUBCUT SCH (09:28)
[2021-05-08 06:51] LABS: Basophils % 0.5 % (0.0-0.8); Eosinophils % 0.2 % (0.00-10.9); Hematocrit 32.8 VOL% (35.7-47.0); Hemoglobin 9.9 GM/DL (12.0-16.0); Immature Granulocytes % 0.2 %; Immature Granulocytes Absolute 0.01 #; Lymphocytes # 1.2 10*3/uL (1.4-4.0); Mean Corpuscular HGB Conc 30.2 GM/DL (32-36); Mean Corpuscular Volume 81.4 FL (87-102); Mean Platelet Volume 9.4 FL (9.6-12.0); Monocytes % 11.9 % (1.7-12.7); Neutrophils % 66.2 % (38.7-73.9); Platelet Count 348 T/CUMM (130-400); Red Blood Count 4.03 MC/CUMM (3.8-5.5); Red Cell Distribution Width 16.2 % (9.3-17.3); White Blood Count 5.5 T/CUMM (4-12)
[2021-05-08 07:10] LABS: Albumin 2.4 G/DL (3.4-5.0); Bilirubin,Total 0.9 MG/DL (0.20-1.00); Calcium 8.6 MG/DL (8.5-10.1); Osmolality,Calculated 279.4 MOS/KG (273-304); Potassium 3.7 MMOL/L (3.5-5.1)
[2021-05-08 07:16] LABS: Platelet Estimate Normal
[2021-05-08 07:17] LABS: Anisocytosis 1+; Hypochromia Slight
[2021-05-08] MEDS: ASPIRIN EC 81 MG TABLET PO SCH (08:39)
[2021-05-08] MEDS: PANTOPRAZOLE 40 MG TABLET PO SCH (08:39)
[2021-05-08] MEDS: hydroCHLOROthiazide 12.5 MG CAPSULE PO SCH (08:39)
[2021-05-08] MEDS: carvediloL 25 MG TABLET PO SCH (08:39)
[2021-05-08] MEDS: ENOXAPARIN 100 MG/ML SYRINGE SUBCUT SCH (08:39)
[2021-05-08] MEDS ORDERED: cloNIDine 0.1 MG TABLET PO SCH (09:00)
[2021-05-08 13:36] VITALS: BP 101/63
== END 2021-05-08 16:03 | disposition home health service (06) | DRG 291 ==
LOC: N.ED 14:49 → N.EDINP 16:51 → N.TELES 05-05 03:17
PROVIDERS: ADMIT Family Medicine; ATTEND Family Medicine

== ENCOUNTER 2021-05-28 11:20 | Inpatient (IN) ==
[2021-05-28] MEDS ORDERED: niCARdipine 25 MG/10 ML VIAL IV ONE ×4 (14:13→20:35)
[2021-05-28 14:20] LABS: Basophils % 0.5 % (0.0-0.8); Eosinophils % 0.7 % (0.00-10.9); Hematocrit 31.1 VOL% (35.7-47.0); Hemoglobin 9.5 GM/DL (12.0-16.0); Immature Granulocytes % 0.5 %; Immature Granulocytes Absolute 0.02 #; Lymphocytes % 23.9 % (21.3-54.2); Mean Corpuscular HGB Conc 30.5 GM/DL (32-36); Mean Corpuscular Volume 82.1 FL (87-102); Mean Platelet Volume 9.4 FL (9.6-12.0); Monocytes % 15.1 % (1.7-12.7); Neutrophils % 59.3 % (38.7-73.9); Platelet Count 280 T/CUMM (130-400); Red Blood Count 3.79 MC/CUMM (3.8-5.5); Red Cell Distribution Width 17.2 % (9.3-17.3); White Blood Count 4.4 T/CUMM (4-12)
[2021-05-28] MEDS: niCARdipine INJ 25 MG in SODIUM CHLORIDE 0.9% 240 ML IV PRN ×4 (14:30→20:48)
[2021-05-28 14:50] LABS: Albumin 2.6 G/DL (3.4-5.0); Bilirubin,Total 0.4 MG/DL (0.20-1.00); Osmolality,Calculated 267.1 MOS/KG (273-304); Potassium 4.2 MMOL/L (3.5-5.1); Total Protein 7.5 G/DL (6.4-8.2)
[2021-05-28] MEDS ORDERED: carvediloL 25 MG TABLET ONE (16:13)
[2021-05-28] MEDS ORDERED: cloNIDine 0.1 MG TABLET ONE (16:13)
[2021-05-28] MEDS: cloNIDine 0.1 MG TABLET PO SCH (16:15)
[2021-05-28] MEDS: carvediloL 25 MG TABLET PO SCH (16:15)
[2021-05-28] MEDS ORDERED: ALBUTEROL 2.5 MG/3 ML NEB RESP TX PRN (16:29)
[2021-05-28] MEDS ORDERED: ONDANSETRON 4 MG/2 ML VIAL IV PRN (16:29)
[2021-05-28] MEDS ORDERED: FUROSEMIDE 40 MG/4 ML VIAL IV STA (16:35)
[2021-05-28] MEDS: minoxidiL 2.5 MG TABLET PO SCH ×2 (18:05→22:46)
[2021-05-28] MEDS ORDERED: minoxidiL 2.5 MG TABLET PO SCH (21:00)
[2021-05-28] MEDS ORDERED: cloNIDine 0.1 MG TABLET PO SCH (21:00)
[2021-05-28] MEDS ORDERED: carvediloL 25 MG TABLET PO SCH (21:00)
[2021-05-29] MEDS: niCARdipine INJ 25 MG in SODIUM CHLORIDE 0.9% 240 ML IV PRN ×4 (02:35→08:08)
[2021-05-29 04:24] LABS: ABG Base Excess 4.1 MMOL/L (-2.5-2.5); ABG HCO3 27.6 MMOL/L (20-26); ABG Oxygen Saturation 68.9 % (95-100); ABG PH 7.406 (7.35-7.45); ABG PO2 41.2 MM HG (80-95)
[2021-05-29 05:25] LABS: Basophils % 0.5 % (0.0-0.8); Eosinophils # 0.1 10*3/uL (0.0-0.87); Eosinophils % 1.4 % (0.00-10.9); Hematocrit 31.1 VOL% (35.7-47.0); Hemoglobin 9.5 GM/DL (12.0-16.0); Immature Granulocytes % 0.2 %; Immature Granulocytes Absolute 0.01 #; Lymphocytes # 0.9 10*3/uL (1.4-4.0); Mean Corpuscular HGB Conc 30.5 GM/DL (32-36); Mean Corpuscular Volume 81.6 FL (87-102); Mean Platelet Volume 10.2 FL (9.6-12.0); Neutrophils % 63.9 % (38.7-73.9); Platelet Count 304 T/CUMM (130-400); Red Blood Count 3.81 MC/CUMM (3.8-5.5); Red Cell Distribution Width 17.2 % (9.3-17.3); White Blood Count 4.3 T/CUMM (4-12)
[2021-05-29 07:03] LABS: Albumin 2.8 G/DL (3.4-5.0); Bilirubin,Total 0.5 MG/DL (0.20-1.00); Calcium 9.1 MG/DL (8.5-10.1); Osmolality,Calculated 266.1 MOS/KG (273-304); Potassium 3.6 MMOL/L (3.5-5.1); Thyroid Stimulating Hormone 5.61 uIU/ml (0.358-3.74); Total Protein 7.7 G/DL (6.4-8.2)
[2021-05-29] MEDS ORDERED: minoxidiL 2.5 MG TABLET PO SCH (09:00)
[2021-05-29] MEDS: PANTOPRAZOLE 40 MG TABLET PO SCH (09:15)
[2021-05-29] MEDS: cloNIDine 0.1 MG TABLET PO SCH ×2 (09:15→20:19)
[2021-05-29] MEDS: carvediloL 25 MG TABLET PO SCH ×2 (09:15→20:19)
[2021-05-29] MEDS ORDERED: hydrALAZINE 20 MG/1 ML VIAL IV PRN (15:27)
[2021-05-29] MEDS: FUROSEMIDE 20 MG TABLET PO SCH (17:15)
[2021-05-30 05:01] LABS: Basophils % 0.2 % (0.0-0.8); Eosinophils # 0.1 10*3/uL (0.0-0.87); Eosinophils % 1.5 % (0.00-10.9); Hematocrit 30.2 VOL% (35.7-47.0); Hemoglobin 9.4 GM/DL (12.0-16.0); Immature Granulocytes % 0.2 %; Immature Granulocytes Absolute 0.01 #; Lymphocytes # 0.9 10*3/uL (1.4-4.0); Lymphocytes % 18.3 % (21.3-54.2); Mean Corpuscular HGB Conc 31.1 GM/DL (32-36); Mean Platelet Volume 9.6 FL (9.6-12.0); Monocytes % 14.2 % (1.7-12.7); Neutrophils % 65.6 % (38.7-73.9); Platelet Count 283 T/CUMM (130-400); Red Blood Count 3.73 MC/CUMM (3.8-5.5); Red Cell Distribution Width 17.2 % (9.3-17.3); White Blood Count 4.6 T/CUMM (4-12)
[2021-05-30 05:16] LABS: Calcium 8.6 MG/DL (8.5-10.1); Potassium 3.8 MMOL/L (3.5-5.1)
[2021-05-30] MEDS ORDERED: minoxidiL 2.5 MG TABLET PO SCH (09:00)
[2021-05-30] MEDS: PANTOPRAZOLE 40 MG TABLET PO SCH (09:10)
[2021-05-30] MEDS: FUROSEMIDE 20 MG TABLET PO SCH ×2 (09:10→16:35)
[2021-05-30] MEDS: carvediloL 25 MG TABLET PO SCH (09:10)
[2021-05-30] MEDS: cloNIDine 0.1 MG TABLET PO SCH (09:10)
[2021-05-30 17:46] VITALS: BP 128/61
== END 2021-05-30 18:45 | disposition home or self-care (01) | DRG 305 ==
LOC: N.ED 11:20 → N.EDINP 17:26 → SUATTDRO 17:26 → N.3E 05-29 17:25
PROVIDERS: ADMIT Internal Medicine; ATTEND Family Medicine

== ENCOUNTER 2022-02-07 10:41 | Inpatient (IN) ==
[2022-02-07] MEDS ORDERED: FUROSEMIDE 40 MG/4 ML VIAL IV STA (11:41)
[2022-02-07 11:42] LABS: Basophils % 0.2 % (0.0-0.8); Eosinophils % 0.2 % (0.00-10.9); Hemoglobin 8.7 GM/DL (12.0-16.0); Immature Granulocytes % 0.8 %; Immature Granulocytes Absolute 0.05 #; Lymphocytes # 1.2 10*3/uL (1.4-4.0); Lymphocytes % 18.7 % (21.3-54.2); Mean Corpuscular Volume 76.7 FL (87-102); Mean Platelet Volume 9.7 FL (9.6-12.0); Monocytes # 0.5 10*3/uL (0.11-0.8); Monocytes % 7.9 % (1.7-12.7); Neutrophils % 72.2 % (38.7-73.9); Platelet Count 268 T/CUMM (130-400); Red Blood Count 3.91 MC/CUMM (3.8-5.5); White Blood Count 6.4 T/CUMM (4-12)
[2022-02-07] MEDS ORDERED: carvediloL 3.125 MG TABLET PO STA (11:42)
[2022-02-07] MEDS ORDERED: lisinopriL 10 MG TABLET PO STA (11:43)
[2022-02-07 12:03] LABS: Albumin 2.7 G/DL (3.4-5.0); Bilirubin,Total 0.8 MG/DL (0.20-1.00); Calcium 8.4 MG/DL (8.5-10.1); Osmolality,Calculated 279.1 MOS/KG (273-304); Potassium 3.5 MMOL/L (3.5-5.1); Total Protein 7.3 G/DL (6.4-8.2)
[2022-02-07] MEDS: niCARdipine INJ 25 MG in SODIUM CHLORIDE 0.9% 240 ML IV SCH ×2 (12:15→15:56)
[2022-02-07] MEDS ORDERED: NITROGLYCERIN DRIP 50 MG/250 ML BOTTLE IV PRN (13:26)
[2022-02-07] MEDS ORDERED: NITROGLYCERIN SL 0.4 MG TABLET SL PRN (13:26)
[2022-02-07] MEDS ORDERED: ALBUTEROL 2.5 MG/3 ML NEB RESP TX PRN (13:57)
[2022-02-07] MEDS ORDERED: ALUMINUM/MAGNES/SIMETH MAX STR 30 ML UDCUP PO PRN (13:57)
[2022-02-07 14:00] VITALS: BP 182/122
[2022-02-07] MEDS: FUROSEMIDE 20 MG TABLET PO SCH (16:38)
[2022-02-07] MEDS: PANTOPRAZOLE 40 MG TABLET PO SCH (16:38)
[2022-02-07] MEDS: niCARdipine INJ 50 MG in SODIUM CHLORIDE 0.9% 480 ML IV SCH ×2 (18:10→23:39)
[2022-02-07] MEDS: ENOXAPARIN 40 MG/0.4 ML SYRINGE SUBCUT SCH (22:51)
[2022-02-07] MEDS: cloNIDine 0.1 MG TABLET PO SCH (22:52)
[2022-02-07] MEDS: carvediloL 25 MG TABLET PO SCH (22:52)
[2022-02-07] MEDS: minoxidiL 2.5 MG TABLET PO SCH (22:52)
[2022-02-07 23:18] LABS: Bacteria,Urine Occasional /HPF (Few); RBC,Urine 1 /HPF (0-4)
[2022-02-07 23:19] LABS: Bilirubin,Urine Negative (Negative); Blood, Urine Negative (Negative); Glucose,Urine (UA) Negative (Negative); Ketones,Urine Negative (Negative); Nitrite,Urine Negative (Negative); Protein,Urine Negative (Negative); Urine Appearance Clear (Clear); Urine Color Yellow (Yellow); Urine Specific Gravity 1.015 (1.001-1.035); Urine Urobilinogen 0.2 eU/dL (<2.0); Urine pH 7.5 (4.5-8.0)
[2022-02-08 04:37] LABS: Calcium 8.1 MG/DL (8.5-10.1); Osmolality,Calculated 282.8 MOS/KG (273-304); Potassium 2.8 MMOL/L (3.5-5.1)
[2022-02-08] MEDS: niCARdipine INJ 50 MG in SODIUM CHLORIDE 0.9% 480 ML IV SCH ×2 (07:27→16:45)
[2022-02-08] MEDS: POTASSIUM CHLORIDE 20 MEQ TABLET PO SCH ×4 (08:50→20:44)
[2022-02-08] MEDS: cloNIDine 0.1 MG TABLET PO SCH ×2 (09:03→20:45)
[2022-02-08] MEDS: PANTOPRAZOLE 40 MG TABLET PO SCH (09:04)
[2022-02-08] MEDS: carvediloL 25 MG TABLET PO SCH ×2 (09:04→20:45)
[2022-02-08] MEDS: lisinopriL 20 MG TABLET PO SCH (09:04)
[2022-02-08] MEDS: minoxidiL 2.5 MG TABLET PO SCH ×2 (09:04→20:45)
[2022-02-08] MEDS ORDERED: NIFEdipine 10 MG CAPSULE PO PRN (09:39)
[2022-02-08] MEDS: FUROSEMIDE 20 MG TABLET PO SCH ×2 (10:00→16:45)
[2022-02-08] MEDS: ENOXAPARIN 40 MG/0.4 ML SYRINGE SUBCUT SCH (20:44)
[2022-02-09 05:19] LABS: Calcium 8.4 MG/DL (8.5-10.1); Potassium 3.4 MMOL/L (3.5-5.1)
[2022-02-09] MEDS: POTASSIUM CHLORIDE 20 MEQ TABLET PO PRN ×3 (06:35→10:53)
[2022-02-09] MEDS: cloNIDine 0.1 MG TABLET PO SCH (08:32)
[2022-02-09] MEDS: carvediloL 25 MG TABLET PO SCH (08:33)
[2022-02-09] MEDS: lisinopriL 20 MG TABLET PO SCH (08:33)
[2022-02-09] MEDS: FUROSEMIDE 20 MG TABLET PO SCH (08:33)
[2022-02-09] MEDS: minoxidiL 2.5 MG TABLET PO SCH (08:33)
[2022-02-09] MEDS: PANTOPRAZOLE 40 MG TABLET PO SCH (08:33)
== END 2022-02-09 12:30 | disposition home or self-care (01) | DRG 199 ==
LOC: N.ED 10:41 → N.EDINP 13:24 → SUATTDRO 13:24 → N.EDINP 14:55 → N.ICU 16:38
PROVIDERS: ADMIT Internal Medicine; ATTEND Family Medicine